=== PATIENT | male | born 1955 | race Caucasian/White ===

== ENCOUNTER 2018-11-10 08:14 | Day surgery (SDC) ==
[~2018-11-10 08:14] MED LIST: BRIMONIDINE TARTRATE 0.2% OPTH SOL OP PRN; BSS WITH EPINEPHRINE OP ONE; DEX-MOXI-KETOR OPTH INJ 1/0.5/0.4 MG/ML IO ONE; LIDOCAINE 1% 20 ML MDV ID STA; LIDOCAINE 1%/PHENYLEPHRINE 1.5% BSS (SURGERY) INTRAOCULA ONE; ZOFRAN 4 MG/2 ML IVP ONE
[2018-11-10] MEDS: TETRACAINE 0.5% UNIT-DOSE OP PRN ×2 (08:50→09:46)
[2018-11-10] MEDS: BETADINE OPTH PREP OP PRN ×2 (08:50→09:46)
[2018-11-10] MEDS: CYCLOGYL 2% OPTH OP PRN ×3 (08:50→09:00)
[2018-11-10] MEDS ORDERED: ZOFRAN 4 MG/2 ML ONE (09:45)
[2018-11-10] MEDS ORDERED: VERSED ONE (09:45)
[2018-11-10] MEDS ORDERED: SUBLIMAZE ONE (09:45)
[2018-11-10 10:46] VITALS: BP 126/73
[2018-11-10 11:26] VITALS: TEMP 97.8
== END 2018-11-10 10:45 | disposition home or self-care (01) ==
LOC: SURG 08:14
PROVIDERS: ATTEND Ophthalmology
DX: H25.11 Age-related nuclear cataract, right eye (principal)

== ENCOUNTER 2018-12-02 08:43 | Day surgery (SDC) ==
[2018-12-02] MEDS: BETADINE OPTH PREP OP PRN ×2 (09:10→09:51)
[2018-12-02] MEDS: TETRACAINE 0.5% UNIT-DOSE OP PRN ×2 (09:10→09:52)
[2018-12-02] MEDS: CYCLOGYL 2% OPTH OP PRN ×3 (09:11→09:21)
[2018-12-02] MEDS ORDERED: BRIMONIDINE TARTRATE 0.2% OPTH SOL OP PRN (09:23)
[2018-12-02] MEDS ORDERED: BSS WITH EPINEPHRINE OP ONE (09:23)
[2018-12-02] MEDS ORDERED: DEX-MOXI-KETOR OPTH INJ 1/0.5/0.4 MG/ML IO ONE (09:23)
[2018-12-02] MEDS ORDERED: LIDOCAINE 1% 20 ML MDV ID STA (09:23)
[2018-12-02] MEDS ORDERED: ZOFRAN 4 MG/2 ML IVP ONE (09:23)
[2018-12-02] MEDS ORDERED: LIDOCAINE 1%/PHENYLEPHRINE 1.5% BSS (SURGERY) INTRAOCULA ONE (09:23)
[2018-12-02] MEDS ORDERED: SUBLIMAZE ONE (09:45)
[2018-12-02] MEDS ORDERED: ZOFRAN 4 MG/2 ML ONE (09:45)
[2018-12-02] MEDS ORDERED: VERSED ONE (09:45)
[2018-12-02 13:00] VITALS: TEMP 98.2
[2018-12-04 14:43] VITALS: BP 132/78
== END 2018-12-02 10:45 | disposition home or self-care (01) ==
LOC: SURG 08:43
PROVIDERS: ATTEND Ophthalmology
DX: H25.12 Age-related nuclear cataract, left eye (principal)